=== PATIENT | male | born 1930 | race Caucasian/White ===

== ENCOUNTER 2017-02-17 09:14 | Inpatient (IN) | payer MEDICARE, OTHER ==
[2017-02-17] VITALS (15 sets, daily range): BP systolic 108–155; BP diastolic 63–92
[~2017-02-17] VITALS: Ht 175.3 cm; Wt 92.1 kg
[~2017-02-17 09:14] MED LIST: BETA1TAB18 PO; CALC-246 PO; CARB1TAB21 PO; GLIM4TAB2 PO; INSU100I19 SQ; NEBI2.5T5 PO; PANT40TA4 PO; RASA1TAB PO; ROSU20TA PO; SITA50TA PO; VITA1TAB56 PO; WARF5TAB6 PO
--- NOTE | 2017-02-17 09:28 | NUR ---
PT REC'D TO ER VIA EMS POSS CVA AT 0840 THIS MORNING PT FELT LEFT SIDE WEKNESS TO ARM AND LEGS LIVES WITH DAUGHTER RT AC 18G IV LABS DRAWN SENT TO LAB . CALLLED DR BRAUN
[2017-02-17 09:32] LABS: BASOPHILS # (AUTO) 0.1 /CMM (0.0-0.2); BASOPHILS % (AUTO) 0.5 % (0.0-2.0); EOSINOPHILS # (AUTO) 0.2 /CMM (0.0-0.7); HEMATOCRIT 39 % (39-51); HEMOGLOBIN 13.2 g/dL (13.5-17.5); LYMPHOCYTES # (AUTO) 2.6 /CMM (0.8-4.8); MEAN CORPUSCULAR HEMOGLOBIN 34 PG (26.0-33.0); MEAN CORPUSCULAR HGB CONC 34 g/dl (31.0-36.0); MEAN CORPUSCULAR VOLUME 99 fL (80-96); MONOCYTES # (AUTO) 0.4 /CMM (0.1-1.30); MONOCYTES % (AUTO) 4.1 % (2.0-12.0); NEUTROPHILS # (AUTO) 7.5 /CMM (1.8-8.9); NEUTROPHILS % (AUTO) 69.4 % (43.0-81.0); PLATELET COUNT (AUTO) 144 /CMM (150-450); RDW COEFFICIENT OF VARIATION 14.8 (11.5-15.0); RED BLOOD CELL COUNT(AUTO) 3.88 MIL/uL (4.5-6.0); WHITE BLOOD COUNT (AUTO) 10.8 K/uL (4.3-11.0)
--- NOTE | 2017-02-17 09:36 | NUR ---
PT SENT TO CT WITH UPHOLSTERER APPRENTICE AND RN . PT ABLE TO VERBALIZE AND FOLLOW COMMANDS CHEST XRAY DONE
[2017-02-17] MEDS ORDERED: DIGO125T PO (09:38)
[2017-02-17] MEDS ORDERED: LINA145C PO (09:38)
[2017-02-17] MEDS ORDERED: ASPI81TA2 PO (09:38)
[2017-02-17] MEDS ORDERED: WARF5TAB6 PO (09:38)
[2017-02-17] MEDS ORDERED: CARB-93 PO (09:38)
[2017-02-17 09:41] LABS: CALCIUM, SERUM 8.7 mg/dL (8.5-10.1); CARBON DIOXIDE 26 mmol/L (21-32); CHLORIDE 105 mmol/L (98-107); CREATININE 0.8 mg/dL (0.6-1.3); GLUCOSE 152 mg/dL (74-106); POTASSIUM 3.9 mmol/L (3.5-5.1); SODIUM SERUM 142 mmol/L (136-145); UREA NITROGEN, BLOOD 11 mg/dL (7-18)
--- NOTE | 2017-02-17 09:45 | NUR ---
FAMILY AT BEDSIDE . MONITORS ON PT ALVAREZ CATH INSETED . PT UNABLE TO VOID UA SENT TO LAB
--- NOTE | 2017-02-17 09:46 | NUR ---
dr hu paged for dr clark
[2017-02-17 09:47] LABS: ALANINE AMINOTRANSFERASE 57 U/L (12-78); ALBUMIN 3.7 g/dL (3.4-5.0); ALKALINE PHOSPHATASE 66 U/L (46-116); ASPARTATE AMINOTRANSFERASE 47 U/L (15-37); BILIRUBIN,DIRECT 0.1 mg/dL (0.0-0.2); BILIRUBIN,TOTAL 0.5 mg/dL (0.2-1.0); TOTAL PROTEIN, SERUM 7.7 g/dL (6.4-8.2)
[2017-02-17 09:49] LABS: TROPONIN I 0.019 ng/mL (0.00-0.056)
--- NOTE | 2017-02-17 09:50 | NUR ---
PT WAS ABLE TO VOID ON HIS OWN . NO ALVAREZ AT BTHIS TIME PER MD
[2017-02-17 09:51] LABS: INR 2.84 (0.87-1.13); PROTHROMBIN TIME 32.5 SECS (9.5-12.7)
--- NOTE | 2017-02-17 10:07 | NUR ---
PT AND FAMILY SPOKE WITH DR SIMMONS . HX A FIB AND ON CRESTOR AND COUMDIN .A FIB IS CONTROLLED RHTHM. RATE 85 . O2 SATS RA 98 N/C 2L 100 PENDING ADMIT TO ICU . FOR THRU TESTING
--- NOTE | 2017-02-17 10:25 | NUR ---
dr salinas at bedside speaking with pt
--- NOTE | 2017-02-17 10:29 | NUR ---
paged nursing supervisor welding equipment repairer for icu bed
[2017-02-17] MEDS ORDERED: BLOOD SUGAR DIAGNOSTIC 1 EACH STRIP IN SCH (10:30)
[2017-02-17] MEDS ORDERED: WARFARIN SODIUM 5 MG TABLET PO SCH (10:30)
[2017-02-17 10:33] LABS: APPEARANCE,URINE Slightly Cloudy (CLEAR); BILIRUBIN,URINE Negative (NEGATIVE); BLOOD, URINE Large Ery/uL (NEGATIVE); COLOR,URINE Brown (YELLOW); KETONES,URINE Negative (NEGATIVE); LEUKOCYTE ESTERASE ,URINE Negative (NEGATIVE); NITRITE, URINE Negative (NEGATIVE); PH,URINE 5.5 (5.0-8.0); PROTEIN,URINE 30 mg/dl (NEGATIVE); UGLUCOSE Negative (NEGATIVE); UROBILINOGEN,URINE 0.2 EU/dL (0.2)
[2017-02-17 10:49] LABS: RBC,URINE 51-80 /HPF (0-2)
[2017-02-17 10:50] LABS: BACTERIA,URINE Moderate /HPF (None Seen); SQUAMOUS EPITHELIAL CELL,UR Rare /HPF (None Seen)
[2017-02-17 11:09] LABS: THYROID STIMULATING HORMONE 3.86 uIU/mL (0.358-3.74)
--- NOTE | 2017-02-17 11:18 | NUR ---
PT ABLE TO SQUEEZE LEFT HAND AND LEFT LEFT LEG PT FAMILY WANTS TO TRANSFER PT TO [facility] MD IS ADORE
--- NOTE | 2017-02-17 11:53 | NUR ---
MRI APPROVED, CALLING RETAIL TEAM MEMBER ROLL FILLER.
--- NOTE | 2017-02-17 12:20 | NUR ---
ICU/RN: PT RECEIVED VIA GURNEY, BREATHING EVEN AND UNLABORED, C/O R SIDED NECK PAIN. PT NOTED TO BE DROWSY, A&OX4, LEFT SIDED WEAKNESS AND NUMBNESS ON BILAT UPPER AND LOWER EXTREMITIES. PT WITH DELAYED AND GARBLED SPEECH. 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 [place] AT BASELINE. ORIENTED TO UNIT AND PROTOCOL.
--- NOTE | 2017-02-17 12:37 | NUR ---
PT STABLE FOR TRANSFER TO ICU REPORT GIVEN TO RN
[2017-02-17] MEDS: BLOOD SUGAR DIAGNOSTIC 1 EACH STRIP IN SCH ×3 (12:47→23:34)
--- NOTE | 2017-02-17 13:00 | NUR ---
ICU/RN: DYSPHAGIA SCREEN CONDUCTED AT BEDSIDE; ABLE TO TAKE SIPS OF WATER, CLEAR SECRETIONS. HOB KEPT ELEVATED PER ASPIRATION PRECAUTIONS. PER DR SIMMONS, KEEP PT NPO EXCEPT FOR MEDS.
[2017-02-17] MEDS: ACETAMINOPHEN 650 MG/20.3 ML UDC PO PRN ×2 (13:19→20:39)
[2017-02-17] MEDS: LINAGLIPTIN 5 MG TABLET PO SCH (13:19)
[2017-02-17] MEDS ORDERED: ASPIRIN 81 MG TAB.CHEW PO ONE (13:30)
--- NOTE | 2017-02-17 15:30 | NUR ---
MULTIPLE D/W BRUSH SANDER IN ATTEMPT TO TRANSFER TO [facility] (FAMILY REQUEST). NOT POSSIBLE AT THIS TIME
--- NOTE | 2017-02-17 16:00 | NUR ---
AT PT'S INSISTENCE, IN PRESENCE OF OCCUPATIONAL THERAPIST DAUGHTER, PT DANGLED AT EDGE OF BED. UNABLE TO MAINTAIN BALANCE WITH GROSS LEFT HEMIPLEGIA. PT WANTS TO "GET INTO A W/C AND DRIVE TO [facility]". INSISTS HE CAN STAND UP BUT WAS UNABLE TO DO ANYTHING BUT DANGLE WITH MOD ASSIST TO MAINTAIN UPRIGHT POSITION. SPEECH SOMETIMES CLEAR AND SOMETIMES DYSPHASIA IS PRESENT Addendum: 02/18/17 at 0907 by HERNANDEZ CHRISTENSEN RN CORRECTION-LT HEMIPARESIS NOT HEMIPLEGIA
--- NOTE | 2017-02-17 16:05 | NUR ---
CALL TO DR HOFFMAN REGARDING ISSUES WITH MRI ORDER AND SURGICAL CLIPS S/P CABG. NO CALL BACK
--- NOTE | 2017-02-17 16:30 | NUR ---
MULTIPLE D/W HUSSAIN CHRISTOPHER REGARDING MRI FEASIBILITY WITH SURGICAL CLIPS S/P CABG 1994 AT [facility]-NOT CLEARED FOR MRI PER HEAD OF RADIOLOGY. D/W DR MAYORGA ALL ABOVE WHO ALSO DOES NOT CLEAR PT FOR MRI BECAUSE OF CLIPS IN CHEST. D/W DR MAYORGA ? NEED FOR IV FLUIDS, CXR FINDINGS AND INABILITY TO TRANSFER AT THIS TIME. NO NEW ORDERS
--- NOTE | 2017-02-17 17:00 | NUR ---
ICU/RN: PT PROVIDED WITH BEDPAN, PT FLATULENT, NO BM NOTED. VOIDED 200 CC CLEAR YELLOW URINE.
[2017-02-17] MEDS: CARBIDOPA/LEVODOPA 25/100 MG 1 UDTAB PO SCH ×2 (17:10→21:45)
--- NOTE | 2017-02-17 17:45 | NUR ---
DR HOFFMAN CLEARED PT FOR BRAIN MRI REPORTEDLY AFTER SHE SPOKE WITH [facility] REP REGARDING SURGICAL CLIPS. WEB DESIGNER NOTIFIED FOR STAT MRI-WILL BE HERE APPROX ONE HR.
[2017-02-17] MEDS ORDERED: SITAGLIPTIN PHOSPHATE 50 MG TABLET PO SCH (18:00)
--- NOTE | 2017-02-17 18:40 | NUR ---
ICU/RN: PT AGAIN INSISTS ON SITTING ON EDGE OF BED WITH MOD ASSIST FROM RN X2, DAUGHTER AT BEDSIDE. PT INSISTS ON REMAINING AT EDGE OF BED, HOWEVER NOTED WITH INCREASED HR 110-120'S AND SOB. PT WITH L SIDED HEMIPLEGIA, REQUIRING MAX SUPERVISION AND ASSIST. EDUCATED PT AND DAUGHTER AT LENGTH ON SAFETY PRECAUTIONS. PT IN PENDING PT AND OT EVAL ORDERED BY PRIMARY MD.
--- NOTE | 2017-02-17 19:00 | NUR ---
RN:ICU: PT TRANSPORTED TO MRI PER MD ORDERS FOR FURTHER CHARACTERIZATION OF PREVIOUS BRAIN IMAGING. MRI CHECKLIST COMPLETED BY JUAN. PT TRANSPORTED TO MRI VIA ACLS PROTOCOL, AND ACCOMPANIED BY PATIENTS DAUGHTER. PATIENT NOTED TO HAVE SIGNIFICANT LEFT SIDED DEFICITS INCLUDING SEVERE WEAKNESS, LACK OF SENSATION WELL FACIAL DROOPING. PT RETURNED TO BED IN STABLE CONDITION. EXPLAINED POC TO PT AND HIS DAUGHTER. WILL CONTINUE TO PERFORM Q1H NEURO CHECKS AND IMPLEMENT FALL/ASPIRATION PRECAUTIONS. VSS. WILL CONTINUE TO MONITOR CLOSELY.
--- NOTE | 2017-02-17 21:05 | NUR ---
rn:icu: mri results reported to lizette bonds as well as updates regarding the patients condition. multiple attempts to contact dr fritz sheppard. pending response. nih stroke scale performed, as well as swallow eval. neuro checks performed per stroke protocol. will continue to monitor closely.
--- NOTE | 2017-02-17 21:16 | NUR ---
rn:icu: second call placed to dr duran. pending response.
--- NOTE | 2017-02-17 21:19 | NUR ---
rn;icu: spoke with nursing supervisor cabinetmaker regarding whether or not to call code stroke because of the mri results showing positive infarct. nursing sup calling stroke leader jessica. code stroke protocol already initiated by geovani and will be continued myself.
[2017-02-17] MEDS: ATORVASTATIN 40 MG TABLET PO SCH (21:46)
--- NOTE | 2017-02-17 22:05 | NUR ---
RN:ICU: SPOKE WITH NURSING SUP WHO SPOKE WITH BLAYNE REGARDING ISSUE IF CODE STROKE NEEDED TO BE ACTIVATED. PER BLAYNE AND NURSING SUP NO NEED TO CALL CODE STROKE. PENDING CALL BACK FROM NEURO MD TO DISCUSS RESULTS.
--- NOTE | 2017-02-17 22:12 | NUR ---
RN;ICU: SECOND ATTEMPT MADE TO CONTACT DR HOFFMAN. SPOKE WITH ISSA REGARDING PT MRI RESULTS AND THAT THE PATIENT FAMILY IS REQUESTING UPDATES REGARDING RESULTS AND WHAT IS GOING TO BE THE NEXT STEPS IN HIS CARE. PENDING CALL BACK. PT HAS NO ADDITIONAL DEFICITS AT THIS TIME. MEDICATIONS CRUSHED AND GIVEN WITH SMALL BITES OF APPLE SAUCE. TYLENOL GIVEN FOR PT NECK AND LEFT ARM PAIN. PAIN MEDS MINIMALLY EFFECTIVE. VSS. WILL CONTINUE TO MONITOR CLOSELY.
[2017-02-18] VITALS (40 sets, daily range): BP systolic 98–154; BP diastolic 58–97
--- NOTE | 2017-02-18 01:52 | NUR ---
RN:ICU: PT COMPLAINING OF URINARY HESITANCY AND REQUESTING F/C. ALSO PT HAS HAD MINIMAL URINE OUTPUT THROUGH SHIFT AND IS DARK SONA URINE. ADDITIONALLY PATIENT HR 100'S AND IS NPO. ORDERS RECEIVED FOR NS 500ML BOLUS AND ALVAREZ CATH. CLARIFIED IF MEDICAL RESEARCH SCIENTIST WANTS MAINTENANCE FLUIDS, MEDICAL RESEARCH SCIENTIST DECLINE MAINTENANCE IVF. D/W MEDICAL RESEARCH SCIENTIST REGARDING CHEST XRAY RESULTS WELL. ORDERS CARRIED OUT AND PLAN OF CARE DISCUSSED WITH PT AND FAMILY. WILL CONTINUE TO MONITOR CLOSELY. PT NEURO STATUS REMAINS THE SAME.
[2017-02-18] MEDS ORDERED: IV NS 0.9% 500 ML IV ONE (02:00)
[2017-02-18 04:41] LABS: BASOPHILS % (AUTO) 0.2 % (0.0-2.0); EOSINOPHILS # (AUTO) 0.2 /CMM (0.0-0.7); HEMATOCRIT 35 % (39-51); LYMPHOCYTES # (AUTO) 2.4 /CMM (0.8-4.8); LYMPHOCYTES % (AUTO) 21.1 % (20.0-44.0); MEAN CORPUSCULAR HEMOGLOBIN 34 PG (26.0-33.0); MEAN CORPUSCULAR HGB CONC 34 g/dl (31.0-36.0); MEAN CORPUSCULAR VOLUME 100 fL (80-96); MONOCYTES # (AUTO) 0.6 /CMM (0.1-1.30); MONOCYTES % (AUTO) 5.6 % (2.0-12.0); NEUTROPHILS # (AUTO) 8.1 /CMM (1.8-8.9); NEUTROPHILS % (AUTO) 71.1 % (43.0-81.0); PLATELET COUNT (AUTO) 134 /CMM (150-450); RDW COEFFICIENT OF VARIATION 14.7 (11.5-15.0); RED BLOOD CELL COUNT(AUTO) 3.56 MIL/uL (4.5-6.0); WHITE BLOOD COUNT (AUTO) 11.4 K/uL (4.3-11.0)
[2017-02-18 04:48] LABS: CALCIUM, SERUM 8.2 mg/dL (8.5-10.1); CARBON DIOXIDE 27 mmol/L (21-32); CHLORIDE 106 mmol/L (98-107); CREATININE 0.7 mg/dL (0.6-1.3); GLUCOSE 127 mg/dL (74-106); POTASSIUM 3.8 mmol/L (3.5-5.1); SODIUM SERUM 142 mmol/L (136-145); UREA NITROGEN, BLOOD 9 mg/dL (7-18)
[2017-02-18 04:52] LABS: DIGOXIN 0.21 ng/mL (0.90-2.00)
[2017-02-18 05:00] LABS: ALANINE AMINOTRANSFERASE 19 U/L (12-78); ALBUMIN 3.3 g/dL (3.4-5.0); ALKALINE PHOSPHATASE 58 U/L (46-116); ASPARTATE AMINOTRANSFERASE 44 U/L (15-37); B-TYPE NATRIURETIC PEPTIDE 379 PG/ML (0-125); BILIRUBIN,TOTAL 0.7 mg/dL (0.2-1.0); TOTAL PROTEIN, SERUM 6.8 g/dL (6.4-8.2)
[2017-02-18 05:03] LABS: TROPONIN I 0.025 ng/mL (0.00-0.056)
[2017-02-18 05:05] LABS: CHOLESTEROL 126 mg/dL (<200); HDL CHOLESTEROL 35 mg/dL (40-60); LDL 74 mg/dL (0-99); THYROID STIMULATING HORMONE 2.449 uIU/mL (0.358-3.74); TRIGLYCERIDES 158 mg/dL (30-150)
[2017-02-18 05:35] LABS: INR 2.62 (0.87-1.13); PROTHROMBIN TIME 29.8 SECS (9.5-12.7)
[2017-02-18] MEDS: BLOOD SUGAR DIAGNOSTIC 1 EACH STRIP IN SCH ×3 (06:10→17:22)
[2017-02-18] MEDS ORDERED: ACETAMINOPHEN 650 MG/SUPP.RECT RC ONE (06:12)
[2017-02-18] MEDS ORDERED: ACETAMINOPHEN 650 MG/SUPP.RECT RC PRN (06:30)
--- NOTE | 2017-02-18 07:50 | NUR ---
FAMILY REPORTS THAT ALVAREZ CATHETER WAS PULLED OUT. ON ASSESSMENT, THE ALVAREZ IS OUT BUT BALLOON IS NOT INFLATED. BLOOD AND BLOOD CLOTS NOTED, PT HAD HEMATURIA IN COLLECTION BAG ALREADY. DOUBLE CHECKED WITH MICROELECTRONICS TECHNICIAN, THERE IS NO ORDER IN [facility] FOR ALVAREZ CATHETER. WILL CHECK WITH DR. SIMMONS IF HE WANTS ALVAREZ INSERTION.
[2017-02-18] MEDS: ASPIRIN 81 MG TAB.CHEW PO SCH (08:15)
[2017-02-18] MEDS: LINAGLIPTIN 5 MG TABLET PO SCH (08:15)
[2017-02-18] MEDS: CARBIDOPA/LEVODOPA 25/100 MG 1 UDTAB PO SCH ×3 (08:15→22:37)
[2017-02-18] MEDS ORDERED: CT SWABBABLE VALVE TRANS SET 1 EA INFUS.SET MC ONE (09:23)
--- NOTE | 2017-02-18 09:54 | NUR ---
PT TAKEN DOWN TO CT FOR CTA HEAD. TOLERATED PROCEDURE WELL.
--- NOTE | 2017-02-18 11:04 | NUR ---
DR. SIMMONS ON THE UNIT ORDERS TO KEEP PT IN ICU. AGGRESSIVE PHYSICAL THERAPY AND OKAY TO ORDER STAT SWALLOW EVAL.
--- NOTE | 2017-02-18 11:37 | NUR ---
CALLED SPEECH THERAPY DATABASE MARKETING ANALYST FOR [facility] TO GET A SPEECH THERAPIST IN. ORDER HAD BEEN PLACED YESTERDAY BY DR. SIMMONS AND WANTED ME TO GET THE SWALLOW EVALUATION DONE TODAY. CURRENT ORDER CHANGED TO STAT. HE STATES HE WILL CALL FOR A SPEECH THERAPIST.
--- NOTE | 2017-02-18 11:52 | NUR ---
PT IN FOR EVAL. PT NEEDS 2 PERSON ASSIST. WE WERE ABLE TO SIT HIM UP DANGLE FEET POSITION. SEVERE UNBALANCE LEFT SIDE LEAN DUE TO THE HEMIPARESIS. RIGHT SIDE IS STRONG AND HE IS ABLE TO HOLD ON TO ME FOR SUPPORT. HE IS ABLE TO MOVE HIS LEFT FOOT TOES ON COMMAND AND KICK HIS KNEE FORWARD, VERY WEAKLY. PT STATES THAT HE IS TOO WEAK TO TRANSITION INTO THE CHAIR, THEY WILL CONTINUE TO FOLLOW, WILL SEE HIM TOMORROW.
[2017-02-18] MEDS ORDERED: DEXTROSE 50%-WATER 50 ML DISP.SYRIN IV PRN (12:00)
--- NOTE | 2017-02-18 12:21 | NUR ---
SPEECH THERAPIST LISA COMING IN AT 1430 FOR SWALLOW EVAL.
[2017-02-18] MEDS: INSULIN REGULAR, HUMAN 100 UNIT/ML 3 ML VIAL SQ PRN ×2 (12:26→17:32)
[2017-02-18] MEDS: DIGOXIN 0.125 MG TABLET PO SCH (12:51)
[2017-02-18] MEDS ORDERED: GLYCERIN ADULT 1 SUPP.RECT RC PRN (13:00)
--- NOTE | 2017-02-18 14:53 | NUR ---
SWALLOW EVAL PT PASSED WITH MECHANICAL SOFT/CHOPPED. SPEECH THERAPIST PROVIDES EXTENSIVE EDUCATION ABOUT SWALLOWING AND ORAL CARE AND SPEECH EXERCISES GIVEN TO PT AND THE PT'S DAUGHTER AT BEDSIDE. SWALLOW SAFETY PRECAUTIONS PLACED ABOVE THE PT'S BED, AND COPY PROVIDED TO THE DAUGHTER.
[2017-02-18] MEDS: ATORVASTATIN 40 MG TABLET PO SCH (22:37)
[2017-02-18] MEDS: HYDROCODONE/APAP 5/325MG 1 EACH TABLET PO PRN (22:47)
[2017-02-19] VITALS (18 sets, daily range): BP systolic 101–142; BP diastolic 60–94
[2017-02-19] MEDS: BLOOD SUGAR DIAGNOSTIC 1 EACH STRIP IN SCH ×3 (00:01→11:32)
[2017-02-19] MEDS: INSULIN REGULAR, HUMAN 100 UNIT/ML 3 ML VIAL SQ PRN ×2 (00:02→12:02)
[2017-02-19 04:59] LABS: BASOPHILS # (AUTO) 0.1 /CMM (0.0-0.2); BASOPHILS % (AUTO) 0.5 % (0.0-2.0); EOSINOPHILS # (AUTO) 0.1 /CMM (0.0-0.7); HEMATOCRIT 37 % (39-51); HEMOGLOBIN 12.7 g/dL (13.5-17.5); LYMPHOCYTES # (AUTO) 1.8 /CMM (0.8-4.8); LYMPHOCYTES % (AUTO) 16.3 % (20.0-44.0); MEAN CORPUSCULAR HEMOGLOBIN 34 PG (26.0-33.0); MEAN CORPUSCULAR HGB CONC 34 g/dl (31.0-36.0); MEAN CORPUSCULAR VOLUME 100 fL (80-96); MONOCYTES # (AUTO) 0.6 /CMM (0.1-1.30); MONOCYTES % (AUTO) 5.4 % (2.0-12.0); NEUTROPHILS # (AUTO) 8.5 /CMM (1.8-8.9); NEUTROPHILS % (AUTO) 76.8 % (43.0-81.0); PLATELET COUNT (AUTO) 124 /CMM (150-450); RDW COEFFICIENT OF VARIATION 14.9 (11.5-15.0); RED BLOOD CELL COUNT(AUTO) 3.71 MIL/uL (4.5-6.0); WHITE BLOOD COUNT (AUTO) 11.1 K/uL (4.3-11.0)
[2017-02-19 05:17] LABS: CALCIUM, SERUM 8.3 mg/dL (8.5-10.1); CARBON DIOXIDE 29 mmol/L (21-32); CHLORIDE 103 mmol/L (98-107); CREATININE 0.8 mg/dL (0.6-1.3); GLUCOSE 123 mg/dL (74-106); MAGNESIUM 1.7 mg/dL (1.8-2.4); PHOSPHORUS 3.1 mg/dL (2.5-4.9); SODIUM SERUM 141 mmol/L (136-145); UREA NITROGEN, BLOOD 8 mg/dL (7-18)
--- NOTE | 2017-02-19 07:15 | NUR ---
ICU INITIAL NOTES RECEIVED PT IN BED, ASLEEP, EASY TO AROUSE, PT IS ON 2L NC, SATING WELL, NO S/S OF RESP.DISTRESS OR SOB NOTED AT THIS TIME, PT IS ON BEDSIDE MONITOR SHOWING CONTROLLED A-FIB, NO C/O OF DISCOMFORT OR CHEST PAIN, NEURO CHECK COMPLETED Q1H, LEFT SIDED WEAKNESS, PT ABLE TO SWALLOW, CHECK MOUTH FOR POCKETING, PT HAS VERY LIMITED MOVEMENT ON LEFT SIDE, PT HAS L HAND #20G, SL, RAC#18G, C/D/I/PATENT, FLUSHING WELL, NO S/S OF INFECTION/ INFILTRATION NOTED AT THIS TIME, DAUGHTER AT BEDSIDE AT ALL TIMES, ALL SAFETY MEASURES IN PLACE AT ALL TIMES, CALL LIGHT WITHIN EASY REACH, WILL MONITOR PT CLOSELY FOR CHANGES
[2017-02-19 09:28] LABS: INR 2.06 (0.87-1.13); PROTHROMBIN TIME 23.1 SECS (9.5-12.7)
[2017-02-19] MEDS: ASPIRIN 81 MG TAB.CHEW PO SCH (10:28)
[2017-02-19] MEDS: CARBIDOPA/LEVODOPA 25/100 MG 1 UDTAB PO SCH (10:28)
[2017-02-19] MEDS: LINAGLIPTIN 5 MG TABLET PO SCH (10:28)
[2017-02-19] MEDS ORDERED: WARFARIN SODIUM 5 MG TABLET PO SCH (10:30)
[2017-02-19] MEDS: Magnesium 1GM/D5W 100ML PREMIX 100 ML IV SCH ×2 (11:32→12:35)
[2017-02-19] MEDS: DIGOXIN 0.125 MG TABLET PO SCH (12:03)
[2017-02-19] MEDS ORDERED: METOPROLOL TARTRATE 25 MG TABLET PO SCH (12:30)
[2017-02-19] MEDS: HYDROCODONE/APAP 5/325MG 1 EACH TABLET PO PRN (12:34)
[2017-02-19] MEDS ORDERED: METO25TA20 PO (13:12)
--- NOTE | 2017-02-19 13:16 | NUR ---
ICU NOTE RECEIVED ORDERS FOR PT TO BE TRANSFERRED TO [facility], ALL DISCHARGE PAPERWORK COMPLETED, ALL INSTRUCTIONS GIVEN, ALL QUESTIONS AND CONCERNS ANSWERED, DAUGHTER AT BEDSIDE, PT KEPT CLEAN AND DRY, ALL MEDICATIONS GIVEN, ALL MD ORDERS CARRIED OUT, ALL BELONGINGS WITH DAUGHTER, ALL PAPERWORK SIGNED. Addendum: 02/19/17 at 1421 by JAZMINE CHADWICK RN NO PHOTOS REQUIRED, LEFT AC IV REMOVED PER RN, REPORT GIVEN TO CONCEPCION LAIRD, DAUGHTER IS AWARE OF DISCHARGE
== END 2017-02-19 14:10 | DRG 65 ==
LOC: ER 09:16 → ICU 12:04
DX: I63.411 Cerebral infarction due to embolism of right middle cerebral artery (principal); D68.59 Other primary thrombophilia; D69.6 Thrombocytopenia, unspecified; G81.94 Hemiplegia, unspecified affecting left nondominant side; I11.0 Hypertensive heart disease with heart failure; I50.9 Heart failure, unspecified; E11.9 Type 2 diabetes mellitus without complications; E78.5 Hyperlipidemia, unspecified; G20 Parkinson's disease; I25.10 Atherosclerotic heart disease of native coronary artery without angina pectoris; I48.2 Chronic atrial fibrillation; Z79.01 Long term (current) use of anticoagulants; Z86.73 Personal history of transient ischemic attack (TIA), and cerebral infarction without residual deficits; Z95.1 Presence of aortocoronary bypass graft; I10 Essential (primary) hypertension; H54.41 Blindness, right eye, normal vision left eye
CPT/HCPCS: 36415; 70450-TC; 70496-TC; 70498-TC; 70551-TC; 71010-TC; 80048-TC; 80053-TC; 80061-TC; 80076-TC; 80162-TC; 80305; 81000-TC; 82962-TC; 83735-TC; 83880; 84100-TC; 84439-TC; 84443-TC; 84484-TC; 85025-TC; 85610-TC; 85652-TC; 85730-TC; 87081-TC; 87086-TC; 92521; 92611-TC; 93307-TC; 93880-TC; 97001-TC; 97110-TC; 97112-TC; 97530-TC; A4606; A6402; J1815; J3475; J7040; Z7610

== ENCOUNTER 2017-04-24 02:13 | Inpatient (IN) | payer MEDICARE, OTHER ==
[~2017-04-24] VITALS: Ht 182.9 cm; Wt 82.1 kg
[~2017-04-24 02:13] MED LIST changes: +ASPI81TA2 PO; +CARB-93 PO; +DIGO125T PO; -GLIM4TAB2 PO; +LINA145C PO; +METO25TA20 PO; -NEBI2.5T5 PO; -PANT40TA4 PO; -WARF5TAB6 PO
--- NOTE | 2017-04-24 02:13 | NUR ---
TO BED 1 BIB PARAMEDICS WITH DAUGHTER AT BEDSIDE C/O LOWER ABDOMINAL PAIN X3 HRS. PT AAOX3 NO ACUTE DISTRESS NOTED, RESP EVEN AND UNLABORED. PLACE PT ON CARDIAC MONITORING, CONTINUOUS POX. PENDING ER MD JUARES.
[2017-04-24] MEDS ORDERED: CLON0.5T4 PO (02:30)
[2017-04-24] MEDS ORDERED: APIX5TAB PO (02:30)
[2017-04-24] MEDS ORDERED: GLIM4TAB2 PO (02:30)
[2017-04-24] MEDS ORDERED: MIRT30TA7 PO (02:30)
[2017-04-24] MEDS ORDERED: OMEP20TA20 PO (02:30)
[2017-04-24 02:44] LABS: EOSINOPHILS # (AUTO) 0.1 /CMM (0.0-0.7); EOSINOPHILS % (AUTO) 0.5 % (0.0-6.0); HEMATOCRIT 33 % (39-51); LYMPHOCYTES # (AUTO) 1.7 /CMM (0.8-4.8); LYMPHOCYTES % (AUTO) 8.9 % (20.0-44.0); MEAN CORPUSCULAR HEMOGLOBIN 32 PG (26.0-33.0); MEAN CORPUSCULAR HGB CONC 33 g/dl (31.0-36.0); MEAN CORPUSCULAR VOLUME 98 fL (80-96); MONOCYTES # (AUTO) 0.7 /CMM (0.1-1.30); MONOCYTES % (AUTO) 3.8 % (2.0-12.0); NEUTROPHILS # (AUTO) 17.1 /CMM (1.8-8.9); NEUTROPHILS % (AUTO) 86.8 % (43.0-81.0); PLATELET COUNT (AUTO) 257 /CMM (150-450); RDW COEFFICIENT OF VARIATION 15.9 (11.5-15.0); WHITE BLOOD COUNT (AUTO) 19.7 K/uL (4.3-11.0)
[2017-04-24] MEDS ORDERED: LIDOCAINE 2% JEL UROJET 10 ML MM ONE ×2 (02:50→03:30)
[2017-04-24 02:55] LABS: CALCIUM, SERUM 9.6 mg/dL (8.5-10.1); CARBON DIOXIDE 27 mmol/L (21-32); CHLORIDE 99 mmol/L (98-107); CREATININE 1.3 mg/dL (0.6-1.3); GLUCOSE 228 mg/dL (74-106); POTASSIUM 4.4 mmol/L (3.5-5.1); SODIUM SERUM 136 mmol/L (136-145); UREA NITROGEN, BLOOD 30 mg/dL (7-18)
[2017-04-24 02:56] LABS: PROTHROMBIN TIME 10.4 SECS (9.5-12.7)
[2017-04-24] MEDS ORDERED: HYDROMORPHONE INJ 2 MG/ML DISP.SYRIN IV ONE (03:00)
[2017-04-24] MEDS ORDERED: ONDANSETRON HCL/PF 4 MG/2 ML VIAL IVP ONE (03:00)
[2017-04-24 03:01] LABS: ALANINE AMINOTRANSFERASE 78 U/L (12-78); ALBUMIN 2.9 g/dL (3.4-5.0); ALKALINE PHOSPHATASE 145 U/L (46-116); ASPARTATE AMINOTRANSFERASE 42 U/L (15-37); BILIRUBIN,DIRECT 0.1 mg/dL (0.0-0.2); BILIRUBIN,TOTAL 0.3 mg/dL (0.2-1.0); LIPASE 122 U/L (73-393); TOTAL PROTEIN, SERUM 8.4 g/dL (6.4-8.2)
[2017-04-24 03:03] LABS: TROPONIN I 0.021 ng/mL (0.00-0.056)
[2017-04-24] MEDS ORDERED: ONDANSETRON HCL/PF 4 MG/2 ML VIAL ONE (03:08)
[2017-04-24] MEDS ORDERED: HYDROMORPHONE INJ 2 MG/ML DISP.SYRIN ONE (03:08)
[2017-04-24] MEDS ORDERED: CEFTRIAXONE 1GM BAG (ER ONLY) 50 ML IV ONE (03:08)
--- NOTE | 2017-04-24 03:11 | NUR ---
RN AT BEDSIDE TO MEDICATE PT.
--- NOTE | 2017-04-24 03:12 | NUR ---
PT TRANSPORTED TO RADIOLOGY FOR CT ABD/PELVIS.
--- NOTE | 2017-04-24 03:17 | NUR ---
MEDICATED PT ORDERED
[2017-04-24] MEDS ORDERED: CEFTRIAXONE 1GM BAG (ER ONLY) 1 GM/50 ML PIGGYBACK IV ONE (03:30)
[2017-04-24 03:48] LABS: LEUKOCYTE ESTERASE ,URINE 3+ (NEGATIVE); NITRITE, URINE NEGATIVE (NEGATIVE); UROBILINOGEN,URINE 0.2 EU/dL (0.2)
[2017-04-24 03:49] LABS: BILIRUBIN,URINE NEGATIVE (NEGATIVE); BLOOD, URINE 2+ Ery/uL (NEGATIVE); KETONES,URINE NEGATIVE (NEGATIVE); PH,URINE 8.5 (5.0-8.0); PROTEIN,URINE TRACE mg/dl (NEGATIVE); UGLUCOSE NEGATIVE (NEGATIVE)
[2017-04-24 03:50] LABS: APPEARANCE,URINE TURBID (CLEAR); COLOR,URINE YELLOW (YELLOW)
[2017-04-24 03:52] LABS: BACTERIA,URINE Many /HPF (None Seen); SQUAMOUS EPITHELIAL CELL,UR Rare /HPF (None Seen); WBC,URINE TOO NUMEROUS TO COUN /HPF (0-3); YEAST,URINE Few /HPF (None Seen)
--- NOTE | 2017-04-24 03:56 | NUR ---
ER MD AT BEDSIDE TALKING TO PT AND PT DAUGHTER REGARDING PT ADMISSION.
[2017-04-24] MEDS ORDERED: IV NS 0.9% 1,000 ML BAG IV ONE (04:00)
--- NOTE | 2017-04-24 04:12 | NUR ---
CALLED [facility] TRANSFER LINE TO SPEAK WITH GAEL; NO RESPONSE. WILL TRY AGAIN SHORTLY.
[2017-04-24 04:39] LABS: B-TYPE NATRIURETIC PEPTIDE 790 PG/ML (0-125)
--- NOTE | 2017-04-24 04:52 | NUR ---
SPOKE TO [facility] NURSING TRAIN DIRECTOR RN DINAREGARDING TRANSFER STATES NO ELEMETRY BED AVAILABLE AT THIS TIME. ER MADE AWARE.
--- NOTE | 2017-04-24 04:56 | NUR ---
HANNAH BISHOP AT BEDSIDE.
--- NOTE | 2017-04-24 05:19 | NUR ---
GALLBLADDER HANNAH DONE.
--- NOTE | 2017-04-24 05:19 | NUR ---
CALLED HOUSE SUP FOR TELE BED
--- NOTE | 2017-04-24 05:33 | NUR ---
ER MD SPOKE TO DR. DELANEY REGARDING PT ADMISSION. WILL CALL FOR REPORT.
--- NOTE | 2017-04-24 05:38 | NUR ---
REPORT CALLED TO PROVIDER NETWORK ANALYSTCONCEPCION SNYDER. WILL TRANSPORT PT VIA ACLS PROTOCOL.
--- NOTE | 2017-04-24 05:50 | NUR ---
PT TRANSPORTED TO TELE ROOM 317-1 VIA ACLS PROTOCOL.
[2017-04-24] MEDS ORDERED: ONDANSETRON HCL/PF 4 MG/2 ML VIAL IVP PRN (06:00)
[2017-04-24] MEDS ORDERED: ZOLPIDEM TARTRATE 5 MG TABLET PO PRN (06:00)
[2017-04-24] MEDS ORDERED: MAG HYDROX/AL HYDROX/SIMETH 30 ML UDC PO PRN (06:00)
[2017-04-24] MEDS ORDERED: clonazePAM 0.5 MG TABLET PO PRN (06:00)
[2017-04-24] MEDS ORDERED: HYDROCODONE/APAP 5/325MG 1 EACH TABLET PO PRN (06:00)
[2017-04-24] MEDS ORDERED: Z GUARD REMEDY 2 OZ OINT TP PRN (06:00)
[2017-04-24] MEDS: BLOOD SUGAR DIAGNOSTIC 1 EACH STRIP IN SCH ×3 (06:00→17:28)
[2017-04-24] MEDS ORDERED: ATORVASTATIN 40 MG TABLET PO SCH (06:00)
[2017-04-24] MEDS ORDERED: DEXTROSE 50%-WATER 50 ML DISP.SYRIN IV PRN (06:00)
[2017-04-24] MEDS ORDERED: CEFTRIAXONE 1 G in IV D5W 50 ML IV SCH (06:00)
[2017-04-24] MEDS ORDERED: MAGNESIUM HYDROXIDE 30 ML UDC PO PRN (06:00)
[2017-04-24 06:59] VITALS: BP 110/69
--- NOTE | 2017-04-24 07:22 | NUR ---
nursing notes recieved patient at 0615 daughter at the bedside. Patient alert orx3. Recieved ATB in the ER 0300 rocephen, and ns bolus as ordered.
--- NOTE | 2017-04-24 07:30 | NUR ---
MS/RN Patient received Patient received from fast food shift supervisor. No needs at this time, daughter at bedisde requesting for patient to be left to sleep. Will continue to monitor and ensure safety.
[2017-04-24] MEDS: IV NS 0.9% 1,000 ML IV PRN ×2 (07:54→22:09)
[2017-04-24 08:00] VITALS: BP 124/78
--- NOTE | 2017-04-24 08:53 | NUR ---
MS/RN Medications Morning medications held at this time until further review by Dr Rivas.
[2017-04-24] MEDS: CARBIDOPA/LEVODOPA 25/100 MG 1 UDTAB PO SCH ×3 (09:00→22:10)
[2017-04-24] MEDS: GLIMEPIRIDE 4 MG TABLET PO SCH (09:00)
[2017-04-24] MEDS: APIXABAN 5 MG TABLET PO SCH ×2 (09:00→22:11)
[2017-04-24] MEDS: METOPROLOL TARTRATE 25 MG TABLET PO SCH ×2 (09:00→22:10)
--- NOTE | 2017-04-24 10:00 | NUR ---
MS/RN S/B Dr Rivas Seen by Dr Rivas - GT feeding to be restarted at 30ml/hr, may also have mechanical soft diet for oral gratification. Duffy catheter to remain in place for three days only and then needs to be discontinued. Contine with current medications.
[2017-04-24] MEDS ORDERED: GLYTROL 1,000 ML BAG GT PRN ×2 (11:00→21:30)
--- NOTE | 2017-04-24 11:00 | NUR ---
MS/RN Turn and reposition Patient will be turned and repositioned every 2-3 hours throughout shift or as condition allows to prevent skin breakdown. Please see CERTIFIED PROFESSIONAL MIDWIFE flowsheet for turning schedule.
[2017-04-24 11:56] VITALS: BP 111/57
--- NOTE | 2017-04-24 12:00 | NUR ---
MS/RN GT feeding GT feeding restarted at 30ml/hr.
--- NOTE | 2017-04-24 15:58 | NUR ---
MS/bellstaff Per Grant, daughters may stay overnight and use extra bed in room.
[2017-04-24 16:00] VITALS: BP 120/62
[2017-04-24] MEDS: ACETAMINOPHEN 325 MG TABLET PO PRN (17:24)
[2017-04-24] MEDS: INSULIN REGULAR, HUMAN 100 UNIT/ML 3 ML VIAL SQ PRN (17:25)
--- NOTE | 2017-04-24 17:42 | NUR ---
MS/RN Blood sugar Blood sugar at 5p - 191, per sliding scale 3 units of regular insulin administered.
[2017-04-24] MEDS ORDERED: SITAGLIPTIN PHOSPHATE 50 MG TABLET PO SCH (18:00)
--- NOTE | 2017-04-24 18:33 | NUR ---
MS/RN End note No changes in care at this time, all needs attended. Skin kept clean and dry, has been turned ans repositioned every 2-3 hours. Daughter at bedside and updated as to plan of care. Will endorse to engineering model maker.
--- NOTE | 2017-04-24 19:10 | NUR ---
TELE/RN NOTES RECEIVED PT. LYING IN BED RESTING. PT. IS EASILY AROUSABLE TO NAME. BREATHING EVEN AND UNLABORED ON ROOM AIR. NO SOB, RESPIRATORY DISTRESS OR COMPLAINTS OF PAIN NOTED AT THIS TIME. PT. WITH EXTERNAL DINING ROOM HOST PRESENT AND INTACT. CURRENT RHTYHM = AFIB HR 106. PT. WITH LEFT WRIST PERIPHERAL IV PRESENT, PATENT AND INTACT ADMINISTERING TO PT. NS @ 75 ML/HR. PT. WITH G-TUBE PRESENT, PATENT AND INTACT ADMINISTERING TO PT. GLYTROL @ 30 ML/HR. PT. TOLERATING WELL. NO RESIDUAL NOTED AT THIS TIME. PT. WITH ALVAREZ CATHETER PRESENT, PATENT AND INTACT DRAINING SONA COLORED URINE WITH SEDIMENT. PT. DAUGHTERS PRESENT AT BEDSIDE. BED LOCKED AND IN LOWEST POSITION, SIDE RAILS UP X3, CALL LIGHT WITHIN REACH, WILL CONTINUE TO MONITOR.
[2017-04-24 20:00] VITALS: BP 111/60
[2017-04-24] MEDS ORDERED: NUT.237L30 GT (20:17)
--- NOTE | 2017-04-24 20:22 | NUR ---
TELE/RN NOTES EPIC PEST CONTROL SERVICE TECHNICIAN PAGED. PT. FAMILY REQUESTING PT. HOME MEDS: LIPITOR, JANUVIA AND KLONOPIN TO BE CONTINUED ORDERED. PT. FAMILY REQUESTING TO D/C TUBE FEEDING AND CONTINUE WITH BOLUS FEEDINGS THAT PT. TAKES AT HOME. AWAITING FROM CALL BACK FROM [facility] PEST CONTROL SERVICE TECHNICIAN MOISES DE LA CRUZ. WILL CONTINUE TO MONITOR.
--- NOTE | 2017-04-24 20:27 | NUR ---
TELE/RN NOTES SPOKE WITH [facility] STER[facility]ING DECATIZER MOISES DE LA CRUZ. NOTIFIED HIM OF PT. DAUGHTERS CONCERNS ABOUT HOME MEDICATIONS. PER MOISES DE LA CRUZ: OK TO CONTINUE PT. HOME MED LIPITOR 20MG HS, HOLD PT. JANUVIA 50 MG AT THIS TIME BECAUSE PT. IS RECEIVING Q6H ACCUCHECKS WITH ISS, PT. OK TO HAVE ONE TIME DOSE OF KLONOPIN 0.5MG IF NEEDED TONIGHT AND CAN BE RE-EVALUATED FOR THAT MEDICATION TOMORROW. MOISES DE LA CRUZ NOTIFIED OF PT. HOME FEEDING SCHEDULE OF GLUCERNA 1.2, 7 CANS/DAY AND PT. DAUGHTER CONCERNED PT. IS NOT RECEIVING ENOUGH CALORIES. PER GRADE FOREMAN DE LA CRUZ OK TO INCREASE TUBE FEEDING OF GLYTROL AT 40 ML/HR AND AWAIT DIETARY CONSULT. WILL CARRY OUT ORDERS. WILL CONTINUE TO MONITOR.
[2017-04-24] MEDS ORDERED: clonazePAM 0.5 MG TABLET PO ONE (22:00)
--- NOTE | 2017-04-24 22:00 | NUR ---
TELE/RN NOTES DID NOT ADMINISTER TO PT. 2200 KLONOPIN MEDICATION BECAUSE PT. HAS BEEN SLEEPING AND IS VERY LETHARGIC. PT. IS EASILY AROUSABLE TO NAME AND TOUCH, PT. RESPONDS TO QUESTIONS WITH SHORT SENTENCES AND QUICKLY FALLS BACK ASLEEP. PT. APPEARS COMFORTABLE AT THE MOMENT. NO SOB, RESPIRATORY DISTRESS OR S/S OF PAIN NOTED. WILL CONTINUE TO MONITOR.
[2017-04-24] MEDS ORDERED: ATORVASTATIN 40 MG TABLET ONE (22:05)
[2017-04-24] MEDS: MIRTAZAPINE 15 MG TABLET PO SCH (22:09)
[2017-04-24] MEDS: ATORVASTATIN 40 MG TABLET PO SCH (22:10)
[2017-04-25] VITALS (7 sets, daily range): BP systolic 100–155; BP diastolic 53–80
[2017-04-25] MEDS: BLOOD SUGAR DIAGNOSTIC 1 EACH STRIP IN SCH ×4 (00:17→17:27)
[2017-04-25] MEDS: INSULIN REGULAR, HUMAN 100 UNIT/ML 3 ML VIAL SQ PRN ×4 (00:18→17:29)
[2017-04-25] MEDS: CEFTRIAXONE 1 G in IV D5W 50 ML IV SCH (04:12)
--- NOTE | 2017-04-25 06:58 | NUR ---
TELE/RN NOTES PT. IS LYING IN BED RESTING.BREATHING EVEN AND UNLABORED ON ROOM AIR. NO SOB, RESPIRATORY DISTRESS OR COMPLAINTS OF PAIN NOTED AT THIS TIME. PT. WITH EXTERNAL CAR PRE COOLER PRESENT AND INTACT. CURRENT RHTYHM = AFIB WITH PVC'S HR 77 . PT. WITH LEFT WRIST PERIPHERAL IV PRESENT, PATENT AND INTACT ADMINISTERING TO PT. NS @ 75 ML/HR. PT. WITH G-TUBE PRESENT, PATENT AND INTACT ADMINISTERING TO PT. GLYTROL @ 40 ML/HR. PT. TOLERATING WELL. NO RESIDUAL NOTED AT THIS TIME AND THROUGHOUT SHIFT. PT. WITH ALVAREZ CATHETER PRESENT, PATENT AND INTACT. EMPTIED 700 ML SONA COLORED URINE. PT. DAUGHTER PRESENT AT BEDSIDE. ALL PT. NEEDS MET. PT. TURNED AND REPOSITIONED Q2H AND NEEDED. BED LOCKED AND IN LOWEST POSITION, SIDE RAILS UP X3, CALL LIGHT WITHIN REACH, WILL ENDORSE TO DAYSHIFT NURSE FOR CONTINUITY OF CARE.
--- NOTE | 2017-04-25 07:00 | NUR ---
RN INITIAL NOTES REPORT RECEIVED AT BEDSIDE. PATIENT IS RESTING COMFORTABLY IN BED. NO SOB OR DISTRESS. PATIENT DENIES PAIN AT THIS TIME. GTUBE FEEDING INFUSING WELL. HEART RATE AFIB AT 101. BED IN A LOW POSITION, CALL LIGHT WITHIN PATIENT REACH. FAMILY IS AT THE BEDSIDE. WILL CONTINUE TO MONITOR.
[2017-04-25 07:54] LABS: CALCIUM, SERUM 8.5 mg/dL (8.5-10.1); CARBON DIOXIDE 28 mmol/L (21-32); CHLORIDE 107 mmol/L (98-107); CREATININE 0.8 mg/dL (0.6-1.3); GLUCOSE 197 mg/dL (74-106); MAGNESIUM 1.6 mg/dL (1.8-2.4); PHOSPHORUS 3.3 mg/dL (2.5-4.9); POTASSIUM 4.1 mmol/L (3.5-5.1); SODIUM SERUM 142 mmol/L (136-145); UREA NITROGEN, BLOOD 20 mg/dL (7-18)
[2017-04-25 08:50] LABS: CHOLESTEROL 108 mg/dL (<200); HDL CHOLESTEROL 32 mg/dL (40-60); LDL 53 mg/dL (0-99); THYROID STIMULATING HORMONE 2.091 uIU/mL (0.358-3.74); TRIGLYCERIDES 191 mg/dL (30-150)
[2017-04-25] MEDS ORDERED: LINAGLIPTIN 5 MG TABLET PO SCH (09:00)
[2017-04-25] MEDS: APIXABAN 5 MG TABLET PO SCH ×2 (09:04→22:00)
[2017-04-25] MEDS: CARBIDOPA/LEVODOPA 25/100 MG 1 UDTAB PO SCH ×3 (09:05→22:08)
[2017-04-25] MEDS: METOPROLOL TARTRATE 25 MG TABLET PO SCH ×2 (09:05→22:00)
[2017-04-25] MEDS: GLIMEPIRIDE 4 MG TABLET PO SCH (09:05)
[2017-04-25 10:14] LABS: BASOPHILS % (AUTO) 0.2 % (0.0-2.0); EOSINOPHILS # (AUTO) 0.3 /CMM (0.0-0.7); HEMATOCRIT 27 % (39-51); HEMOGLOBIN 8.9 g/dL (13.5-17.5); LYMPHOCYTES # (AUTO) 1.7 /CMM (0.8-4.8); LYMPHOCYTES % (AUTO) 19.5 % (20.0-44.0); MEAN CORPUSCULAR HEMOGLOBIN 33 PG (26.0-33.0); MEAN CORPUSCULAR HGB CONC 33 g/dl (31.0-36.0); MEAN CORPUSCULAR VOLUME 99 fL (80-96); MONOCYTES # (AUTO) 0.6 /CMM (0.1-1.30); MONOCYTES % (AUTO) 6.2 % (2.0-12.0); NEUTROPHILS # (AUTO) 6.4 /CMM (1.8-8.9); NEUTROPHILS % (AUTO) 71.1 % (43.0-81.0); PLATELET COUNT (AUTO) 199 /CMM (150-450); RED BLOOD CELL COUNT(AUTO) 2.69 MIL/uL (4.5-6.0); WHITE BLOOD COUNT (AUTO) 8.9 K/uL (4.3-11.0)
--- NOTE | 2017-04-25 10:25 | NUR ---
RN NOTES DR NG ON FLOOR. INFORMED MD OF NEED OF AZILECT 1MG DAILY THAT WAS INITIALLY HELD BY DR SIMMONS. FORREST STATES TO RESTART THE MEDICATION IF FAMILY CAN PROVIDE IT FROM HOME. FAMILY STATES THEY WILL PROVIDE IT FROM HOME LATER. Addendum: 04/25/17 at 1928 by HERNANDEZ MILLS RN DR NG INCREASED TUBE FEEDING TO 65ML AT THIS TIME
[2017-04-25] MEDS: Magnesium 1GM/D5W 100ML PREMIX 100 ML IV SCH ×2 (11:15→12:12)
[2017-04-25] MEDS: GLYTROL 1,000 ML BAG GT PRN (12:11)
[2017-04-25] MEDS: IV NS 0.9% 1,000 ML IV PRN (12:11)
[2017-04-25] MEDS: PANTOPRAZOLE 40 MG/PACK PACK GT SCH (17:27)
[2017-04-25] MEDS: AZILECT 1 MG PO SCH (17:29)
--- NOTE | 2017-04-25 19:28 | NUR ---
RN CLOSING NOTES NO SIGNIFICANT CHANGES IN PATIENT CONDITION THROUGHOUT THE SHIFT. NO SOB OR DISTRESS NOTED AT THIS TIME. PATIENT DENIES PAIN. BED IN A LOW POSITION, CALL LIGHT WITHIN PATIENT REACH, FAMILY IS AT THE BEDSIDE. WILL ENDORSE FOR WILEY.
--- NOTE | 2017-04-25 19:30 | NUR ---
RN NOTES; RECEIVED AWAKE ON BED,DAUGHTER PRESENT AT BED SIDE, ALERT AND COHERENTX2,ON PEG FEED, ALVAREZ CATH DRAINING WELL,ON SCD PUMP,NO SIGN OF SOB OR RESPIRATORY DISTRESS NOTED, IV CANNULA PATENT,IVF ONGOING, CALL LIGHT WITHIN EASY REACH, BED LOW AND LOCKED.
[2017-04-25] MEDS: ATORVASTATIN 40 MG TABLET PO SCH (22:05)
[2017-04-25] MEDS: MIRTAZAPINE 15 MG TABLET PO SCH (22:07)
[2017-04-25] MEDS: LINAGLIPTIN 5 MG TABLET PO SCH (22:08)
[2017-04-25] MEDS: VORICONAZOLE 200 MG TABLET GT SCH (22:16)
[2017-04-26] VITALS: BP 117/64
--- NOTE | 2017-04-26 00:20 | NUR ---
RN NOTES; ASLEEP AT SHORT INTERVAL, TURNING AND REPOSITIONING DONE, BLOOD SUGAR CHECKED-165, INSULIN GIVEN PER SLIDING SCALE, WILL CONTINUE TO MONITOR FOE SIGN OF HYPER AND HYPOGLYCEMIA.
[2017-04-26] MEDS: INSULIN REGULAR, HUMAN 100 UNIT/ML 3 ML VIAL SQ PRN ×4 (00:33→23:46)
[2017-04-26] MEDS: BLOOD SUGAR DIAGNOSTIC 1 EACH STRIP IN SCH ×4 (00:34→17:11)
[2017-04-26] MEDS: IV NS 0.9% 1,000 ML IV PRN (02:14)
--- NOTE | 2017-04-26 02:15 | NUR ---
RN NOTES; IVF FINISHED, REPLACED WITH NEW BAG OF NS AT 75 ML/HR.
[2017-04-26 04:00] VITALS: BP 121/70
[2017-04-26] MEDS: CEFTRIAXONE 1 G in IV D5W 50 ML IV SCH (04:27)
--- NOTE | 2017-04-26 06:04 | NUR ---
RN NOTES; BLOOD SUGAR CHECK-191, INSULIN GIVEN PER SCALE, MORNING CARE DONE,BED BATH RENDERED, CLEAN AND CHANGE, NEW BAG OF PEG FEED STARTED. Addendum: 04/26/17 at 0911 by SERGEI WISEMAN RN NO PEG FEED AVAILABLE AT THIS TIME,F/U IN DIETARY DEPARTMENT AT 0630, NO ONE ANSWER, ENDORSED TO NEXT SHIFT TO FOLLOW UP DELIVERY OF PEG FEEDING.
[2017-04-26] MEDS: ACETAMINOPHEN 325 MG TABLET PO PRN ×2 (06:38→12:35)
--- NOTE | 2017-04-26 06:51 | NUR ---
RN NOTES; COMPLAINTS OF GENERALIZE MILD PAIN, REQUEST FOR TYLENOL, GIVEN,NON PHARMACOLOGIC INTERVENTION RENDERED.
[2017-04-26 06:56] VITALS: BP 134/76
--- NOTE | 2017-04-26 07:00 | NUR ---
RN NOTED: PATIENT IS AWAKE, TURN AND REPOSITION, DIAPER CHANGE,FEEDING NOT YET AVAILABLE, ENDORSED TO F/U IN THE DIETARY DEPT.PUT PATIENT IN COMFORTABLE POSITION, ENDORSED FOR CONTINUITY OF CARE.
--- NOTE | 2017-04-26 07:00 | NUR ---
RN INITIAL NOTES REPORT RECEIVED AT THE BEDSIDE. PATIENT IS RESTING COMFORTABLY IN BED. NO SOB OR DISTRESS NOTED AT THIS TIME. PATIENT DOES NOT APPEAR TO BE IN PAIN, NO FACIAL GRIMACE NOTED. TUBE FEEDING IS FINISHED, WAITING FOR NEW BAG TO HANG. HEART RATE AFIB IN THE 90'S. BED IN A LOW POSITION, FAMILY IS AT THE BEDSIDE. WILL CONTINUE TO MONITOR.
[2017-04-26 07:09] LABS: BASOPHILS % (AUTO) 0.5 % (0.0-2.0); EOSINOPHILS # (AUTO) 0.3 /CMM (0.0-0.7); EOSINOPHILS % (AUTO) 4.2 % (0.0-6.0); HEMATOCRIT 27 % (39-51); LYMPHOCYTES # (AUTO) 1.7 /CMM (0.8-4.8); LYMPHOCYTES % (AUTO) 20.3 % (20.0-44.0); MEAN CORPUSCULAR HEMOGLOBIN 33 PG (26.0-33.0); MEAN CORPUSCULAR HGB CONC 34 g/dl (31.0-36.0); MEAN CORPUSCULAR VOLUME 98 fL (80-96); MONOCYTES # (AUTO) 0.5 /CMM (0.1-1.30); MONOCYTES % (AUTO) 6.2 % (2.0-12.0); NEUTROPHILS # (AUTO) 5.7 /CMM (1.8-8.9); NEUTROPHILS % (AUTO) 68.8 % (43.0-81.0); PLATELET COUNT (AUTO) 182 /CMM (150-450); RDW COEFFICIENT OF VARIATION 15.9 (11.5-15.0); WHITE BLOOD COUNT (AUTO) 8.2 K/uL (4.3-11.0)
[2017-04-26 07:22] LABS: CALCIUM, SERUM 8.5 mg/dL (8.5-10.1); CARBON DIOXIDE 26 mmol/L (21-32); CHLORIDE 107 mmol/L (98-107); CREATININE 0.8 mg/dL (0.6-1.3); GLUCOSE 176 mg/dL (74-106); MAGNESIUM 1.8 mg/dL (1.8-2.4); PHOSPHORUS 3.2 mg/dL (2.5-4.9); POTASSIUM 3.5 mmol/L (3.5-5.1); SODIUM SERUM 141 mmol/L (136-145); UREA NITROGEN, BLOOD 16 mg/dL (7-18)
[2017-04-26 08:00] VITALS: BP 134/76
--- NOTE | 2017-04-26 08:04 | NUR ---
RN NOTES PATIENT HAS HAD TWO EPISODES OF ABNORMAL HEART RHYTHM. TWICE, THE PATIENT HAS DROPPED DOWN TO THE 40S-50S AND THEN SUDDENLY SHOT UP TO THE 120S. THESE EPISODES ONLY LAST A FEW SECONDS. CALLED DR FORREST NG TO INFORM. EPIC TO LEAVE MESSAGE FOR TO CALL. WILL CONTINUE TO MONITOR FOR ABNORMAL RHYTHM.
[2017-04-26] MEDS: GLIMEPIRIDE 4 MG TABLET PO SCH (08:36)
[2017-04-26] MEDS: GLYTROL 1,000 ML BAG GT PRN (08:36)
[2017-04-26] MEDS: VORICONAZOLE 200 MG TABLET GT SCH ×2 (08:36→21:17)
[2017-04-26] MEDS: APIXABAN 5 MG TABLET PO SCH ×2 (08:37→21:00)
[2017-04-26] MEDS: METOPROLOL TARTRATE 25 MG TABLET PO SCH ×2 (08:37→21:18)
[2017-04-26] MEDS: CARBIDOPA/LEVODOPA 25/100 MG 1 UDTAB PO SCH ×3 (08:37→21:18)
[2017-04-26] MEDS: AZILECT 1 MG PO SCH (08:37)
--- NOTE | 2017-04-26 10:18 | NUR ---
RN NOTES AFTER GIVING PATIENT'S MORNING METOPROLOL, HEART RATE STABILIZED AND PVCS HAVE SLOWED.
[2017-04-26 16:00] VITALS: BP 123/66
[2017-04-26] MEDS ORDERED: GLYTROL 1,000 ML BAG GT PRN (17:00)
[2017-04-26] MEDS ORDERED: PANTOPRAZOLE 40 MG TABLET.DR PO SCH (17:00)
[2017-04-26] MEDS: PANTOPRAZOLE 40 MG/PACK PACK GT SCH (17:11)
--- NOTE | 2017-04-26 18:47 | NUR ---
RN CLOSING NOTES NO SIGNIFICANT CHANGES IN PATIENT CONDITION THROUGHOUT THE SHIFT. NO SOB OR DISTRESS NOTED AT THIS TIME. PATIENT DENIES PAIN. GTUBE FEEDING RUNNING AND TOLERATED THROUGH SHIFT. NO RESIDUALS. BED IN A LOW POSITION, FAMILY AT THE BEDSIDE. WILL ENDORSE FOR WILEY. Addendum: 04/26/17 at 1849 by HERNANDEZ MILLS RN HEART RATE AFIB IN THE 80S.
[2017-04-26 20:00] VITALS: BP 125/68
[2017-04-26] MEDS: MIRTAZAPINE 15 MG TABLET PO SCH (21:17)
[2017-04-26] MEDS: ATORVASTATIN 40 MG TABLET PO SCH (21:19)
[2017-04-26] MEDS: LINAGLIPTIN 5 MG TABLET PO SCH (21:37)
[2017-04-26] MEDS ORDERED: clonazePAM 0.5 MG TABLET ONE (23:29)
[2017-04-26] MEDS ORDERED: clonazePAM 0.5 MG TABLET PO ONE (23:30)
[2017-04-27] MEDS: CEFTRIAXONE 1 G in IV D5W 50 ML IV SCH (03:50)
[2017-04-27] MEDS: INSULIN REGULAR, HUMAN 100 UNIT/ML 3 ML VIAL SQ PRN ×2 (05:57→13:05)
[2017-04-27] MEDS: BLOOD SUGAR DIAGNOSTIC 1 EACH STRIP IN SCH ×4 (06:00→17:47)
[2017-04-27] MEDS: ACETAMINOPHEN 325 MG TABLET PO PRN ×2 (06:03→17:41)
--- NOTE | 2017-04-27 07:32 | NUR ---
RN OPENING NOTES RECEIVED PATIENT RESTING COMFORTABLY IN BED. FAMILY AT THE BED SIDE. PT IS AOX3 BUT SLOW TO RESPOND. IV ACCES ON THE LEFT WRIST 22G WITH NS RUNNING AT 75ML/HR. GTUBE IN PLACE WITH GLYTROL RUNNING 75ML/HR. FAMILY ASKING FOR REASON WHY PATIENT IS NOT RECEIVING KLONOPIN. DENIES SOB AND CP. NO COMPLAINTS OF PAIN AT THIS TIME. RESPIRATIONS EVEN AND UNLABORED. NO ACUTE DISTRESS NOTED. BED LOCKED IN THE LOWEST POSITION WITH SIDE RAILS UP X2. CALL LIGHT WITHIN REACH. WILL CONTINUE TO MONITOR, ASSESS AND EDUCATED PATIENT THROUGHOUT SHIFT.
[2017-04-27 07:55] LABS: BASOPHILS % (AUTO) 0.2 % (0.0-2.0); EOSINOPHILS # (AUTO) 0.3 /CMM (0.0-0.7); HEMATOCRIT 29 % (39-51); HEMOGLOBIN 9.6 g/dL (13.5-17.5); LYMPHOCYTES # (AUTO) 1.6 /CMM (0.8-4.8); LYMPHOCYTES % (AUTO) 18.6 % (20.0-44.0); MEAN CORPUSCULAR HEMOGLOBIN 33 PG (26.0-33.0); MEAN CORPUSCULAR HGB CONC 33 g/dl (31.0-36.0); MEAN CORPUSCULAR VOLUME 99 fL (80-96); MONOCYTES # (AUTO) 0.4 /CMM (0.1-1.30); MONOCYTES % (AUTO) 4.9 % (2.0-12.0); NEUTROPHILS # (AUTO) 6.2 /CMM (1.8-8.9); NEUTROPHILS % (AUTO) 72.3 % (43.0-81.0); PLATELET COUNT (AUTO) 183 /CMM (150-450); RDW COEFFICIENT OF VARIATION 16.8 (11.5-15.0); RED BLOOD CELL COUNT(AUTO) 2.95 MIL/uL (4.5-6.0); WHITE BLOOD COUNT (AUTO) 8.6 K/uL (4.3-11.0)
[2017-04-27 08:05] LABS: CALCIUM, SERUM 8.8 mg/dL (8.5-10.1); CARBON DIOXIDE 28 mmol/L (21-32); CHLORIDE 107 mmol/L (98-107); CREATININE 0.8 mg/dL (0.6-1.3); GLUCOSE 170 mg/dL (74-106); MAGNESIUM 1.5 mg/dL (1.8-2.4); POTASSIUM 3.7 mmol/L (3.5-5.1); SODIUM SERUM 142 mmol/L (136-145); UREA NITROGEN, BLOOD 16 mg/dL (7-18)
[2017-04-27] MEDS ORDERED: Magnesium 1GM/D5W 100ML PREMIX PIGGYBACK IV ONE (09:30)
[2017-04-27] MEDS: AZILECT 1 MG PO SCH (09:54)
[2017-04-27] MEDS: GLIMEPIRIDE 4 MG TABLET PO SCH (09:54)
[2017-04-27] MEDS: APIXABAN 5 MG TABLET PO SCH (09:54)
[2017-04-27] MEDS: METOPROLOL TARTRATE 25 MG TABLET PO SCH (09:57)
[2017-04-27] MEDS: CARBIDOPA/LEVODOPA 25/100 MG 1 UDTAB PO SCH ×2 (10:00→17:41)
[2017-04-27] MEDS: VORICONAZOLE 200 MG TABLET GT SCH (10:01)
--- NOTE | 2017-04-27 10:42 | NUR ---
RN NOTES PRIOR TO MEDICATION ADMINISTRATION RESIDUALS CHECKED. NO RESIDUALS NOTED. GTUBE PATENT AND IN PLACE.
--- NOTE | 2017-04-27 10:46 | NUR ---
RN NOTES F/C REMOVED. BALLOON DEFLATED. PATIENT TOLERATED WELL. WILL CONTINEU TO MONITOR PATIENT TO MAKE SURE PATIENT CAN VOID AND NOT RETAIN BEFORE PATIENT CAN BE DISCHARGED. WILL CONTINUE TO MONITOR.
[2017-04-27 16:00] VITALS: BP 156/108
[2017-04-27 17:12] VITALS: BP 156/71
[2017-04-27] MEDS: PANTOPRAZOLE 40 MG/PACK PACK GT SCH (17:42)
--- NOTE | 2017-04-27 20:26 | NUR ---
RN CLOSING NOTES PATIENT DISCHARGED IN STABLE CONDITION. PATIENT IS AOX3 SLOW TO RESPOND. GTUBE IN PLACE AND PATENT. DENIES SOB, CP AND OTHER FORM OF PAIN AT THIS TIME. RESPIRATION EVEN AND UNLABORED. ALL EXITCARE TEACH PROVIDED AND PLACED IN CHART. ALL DISCHARGE EDUCATION PROVIDED. ALL NEEDS MET ALL MEDS GIVEN APPROPRIATE. PATIENT ABLE TO VOID INDEPENDENTLY. NO SIGNS OF URINARY RETENTION. Continue V-fend for 11 more days, Keflex 500 PO BID x 7 days, Continue all home medications, Follow up with Dr. Nicole (PMD) in one week
== END 2017-04-27 19:00 | disposition home or self-care (01) | DRG 871 ==
LOC: ER 02:16 → TELE 05:39 → MED 04-27 00:01
DX: A41.9 Sepsis, unspecified organism (principal); N17.0 Acute kidney failure with tubular necrosis; I50.33 Acute on chronic diastolic (congestive) heart failure; E87.2 Acidosis; D68.59 Other primary thrombophilia; G20 Parkinson's disease; I48.91 Unspecified atrial fibrillation; I69.354 Hemiplegia and hemiparesis following cerebral infarction affecting left non-dominant side; B37.49 Other urogenital candidiasis; E83.42 Hypomagnesemia; E11.9 Type 2 diabetes mellitus without complications; E78.5 Hyperlipidemia, unspecified; I25.10 Atherosclerotic heart disease of native coronary artery without angina pectoris; K21.9 Gastro-esophageal reflux disease without esophagitis; R13.10 Dysphagia, unspecified; Z95.1 Presence of aortocoronary bypass graft; R33.9 Retention of urine, unspecified; I11.0 Hypertensive heart disease with heart failure; Z93.1 Gastrostomy status; Z79.899 Other long term (current) drug therapy; Z79.4 Long term (current) use of insulin; Z79.01 Long term (current) use of anticoagulants
CPT/HCPCS: 36415; 71010-TC; 76705-TC; 80048-TC; 80061-TC; 80076-TC; 81000-TC; 82962-TC; 83605-TC; 83690-TC; 83735-TC; 83880; 84100-TC; 84443-TC; 84484-TC; 85025-TC; 85730-TC; 87081-TC; 87086-TC; A4216; A4606; J0696; J1170; J1815; J2405; J3475; J3490; J7030; J7040; J7050; J7060; Z7610